=== PATIENT | female | born 1965 | race Caucasian/White ===

== ENCOUNTER 2016-12-12 04:41 | Inpatient (IN) ==
[2016-12-12] MEDS ORDERED: ZOFRAN IV ONE ×2 (04:54→07:49)
[2016-12-12] MEDS ORDERED: TORADOL IV ONE (04:54)
[2016-12-12] MEDS ORDERED: DILAUDID IV ONE (04:54)
[2016-12-12] MEDS ORDERED: NS 1,000 ML IV ONE (04:54)
--- NOTE | 2016-12-12 05:08 | PROVIDER DOCUMENTATION ---
HPI-Abdominal Pain/GI Problem - General Chief Complaint: Abdominal Pain Stated Complaint: STOMACH PAIN Time Seen by Provider: 12/12/16 04:49 Source: patient Allergies/Adverse Reactions: Patient Allergies Allergy/AdvReac Type Severity Reaction Status Date / Time No Known Allergies Allergy Verified 12/12/16 05:06 Home Medications: Home Medication List Medication Instructions Recorded Confirmed Last Taken Type Doxycycline Hyclate 100 mg PO BID 12/12/16 12/12/16 12/11/16 History - History of Present Illness-ABD Nature of Presenting Problems: pt states that starting around 11 PM she started having mid back pain that radiates around to the RUQ and periumbilical area.Initially it was mild but now is severe and constant and achy. She has vomited twice. She has a normal BM yesterday. No fever or chills. No cough or sore throat. No chest pain. She has not tried anything for the pain. No dysuria Review of Systems - Adult - REVIEW OF SYSTEMS - ADULT Constitutional: denies: chills, fever Eyes: denies: discharge Ears, Nose, Mouth & Throat: denies: ear pain, sinus problem, throat pain Cardiovascular: denies: chest pain Respiratory: denies: cough, shortness of breath Gastrointestinal: reports: see HPI, nausea, vomiting. denies: hematemesis, constipation, diarrhea, rectal bleeding Genitourinary: denies: dysuria, flank pain Musculoskeletal: reports: back pain. denies: muscle aches Integumentary: denies: rash Neurological: denies: headache/migraines Psychiatric: reports: no symptoms reported Endocrine: reports: no symptoms reported Hematologic/Lymphatic: reports: no symptoms reported Allergic/Immunologic: reports: no symptoms reported All Other Systems: Reviewed and Negative Past History - Adult - PAST MEDICAL HISTORY-ADULT Review of Records: reports: Old Records Reviewed, Nursing Assessment Review, Medications Reviewed, Social history reviewed & non-contributory. - PRIOR SURGERIES/PROCEDURES Surgical/Procedure History: reports: hysterectomy - FAMILY HISTORY Family History: reviewed, not pertinent - SOCIAL HISTORY Smoking: denies Living Situation: family Physical Exam-General - PHYSICAL EXAM-ADULT Initial Vital Signs Reviewed: Yes - CONSTITUTIONAL General Appearance: moderate distress (from pain) - EYES Eyes: pink conjunctivae. negative: scleral icterus - HEAD, EARS, NOSE, MOUTH & THROAT HENMT: normocephalic/atraumatic, pharynx normal - NECK Neck: non-tender, full range of motion, supple, normal inspection - RESPIRATORY Respiratory: chest non-tender, lungs clear, normal breath sounds, no pleuratic chest pain, no respiratory distress - CARDIOVASCULAR Cardiovascular: regular rate, rhythm, no murmur - GASTROINTESTINAL (ABDOMEN) Abdominal Exam: normal bowel sounds, soft, no organomegaly, no pulsatile mass, tenderness (mod. RUQ), Fontanez's sign. negative: non tender, distended, guarding , rigid, rebound, hernia, mass, hepatomegaly, spleenomegaly, McBurney's point tenderness, obturator sign, prominent aortic pulsations - MUSCULOSKELETAL Back Exam: normal inspection, no CVA tenderness, no vertebral tenderness - SKIN Integumentary: normal color, normal turgor, warm/dry - NEUROLOGIC Neurologic: grossly normal, no motor/sensory deficits - PSYCHIATRIC Psych/Mental Status: normal mood/affect, normal thought content, normal thought process, oriented x 3 Progress - PLAN OF CARE/RESULTS Progress/Plan/Lab Results: Vital Signs - 8 hr 12/12/16 04:47 Pulse Rate 85 Respiratory Rate 24 Blood Pressure 156/125 O2 Sat by Pulse Oximetry 100 Orders Category Date Time Status CBC WITH ELECTRONIC DIFF [HEME] Stat Lab 12/12/16 05:03 Ordered CMP [COMPREHENSIVE METABOLIC PANEL] [CHEM] Stat Lab 12/12/16 05:03 Ordered LIPASE [CHEM] Stat Lab 12/12/16 05:03 Ordered UA Reflex [URINALYSIS W/POSS RFLX CULT] [URINALYSIS] Lab 12/12/16 04:55 Uncollected Stat 0.9% Sodium Chloride Inj [Ns] 1,000 ml Med 12/12/16 04:54 Active IV 999 mls/hr Hydromorphone [Dilaudid] Med 12/12/16 04:54 Discontinued 1 mg IV NOW ONE Ketorolac [Toradol] Med 12/12/16 04:54 Discontinued 30 mg IV NOW ONE Ondansetron [Zofran] Med 12/12/16 04:54 Discontinued 4 mg IV NOW ONE Result Diagrams: 12/12/16 04:55 12/12/16 04:55 - REASSESSMENT Reassessment #1 Time Reassessed: 06:02 (pt is currently painfree) Status: improving - CHANGE OF SHIFT REPORT (ED Provider) Report Given and Care Transferred to:: Dr Wagoner Time of Transfer: 06:02 Items Pending: Ultrasound Results Departure - Departure Date of Disposition Decision: 12/12/16 Time of Disposition Decision: 10:26 DIAGNOSIS: Cholelithiases, Acute cholecystitis Disposition: ADMITTED INPATIENT 09 Certified Medical Emergency: Emergent Condition: Stable Referrals and Follow-Ups: None,PCP [Primary Care Provider] - - Critical Care Note This patient required my direct & personal management of CC.: No Attestation - Physician/ PRATIMA Attestation The physician spent face to face time with patient:: Yes Advanced Practice Provider documentation review:: The physician spent face to face time with this patient and agrees with all MLP documentation, treatment, and medical decision making by the MLP. See provider notes for further information.
[2016-12-12 05:28] LABS: BASO% 0.2 % (0.0-0.8); EOS# 0.02 X1000 (0.0-0.7); EOS% 0.2 % (0.0-10.0); HEMATOCRIT 44.9 % (37.0-47.0); IMM GRAN# 0.03 X1000 (0.0-0.04); IMM GRAN% 0.2 % (0.0-0.5); LYMPH# 1.36 X1000 (1.2-3.4); LYMPH% 10.5 % (20.5-51.1); MANUAL DIFF NEEDED? NO; MCHC 33.4 g/dL (33-37); MCV 89.8 FL (81-99); MONO# 0.43 X1000 (0.11-0.59); MONO% 3.3 % (1.7-9.3); MPV 11.2 FL (7.4-10.4); NEUT% 85.6 % (42.2-75.2); PLT 219 X1000 (130-400)
[2016-12-12 05:54] LABS: ALBUMIN 4.4 g/dL (3.5-5.0); CALCIUM 9.5 mg/dL (8.8-10.2); POTASSIUM 3.8 mmol/L (3.5-5.1); TOTAL BILIRUBIN 0.37 mg/dL (0.20-1.00); TOTAL PROTEIN 7.7 g/dL (6.3-8.3)
[2016-12-12 06:07] LABS: URINE CULTURE NEEDED? NO; URINE MICRO REVIEW NEEDED? NO; URINE SOURCE CLEAN CATCH
[2016-12-12 06:28] LABS: BILIRUBIN URINE NEGATIVE (NEGATIVE); BLOOD URINE NEGATIVE (NEGATIVE); COLOR YELLOW; GLUCOSE URINE TRACE mg/dL (NEGATIVE); LEUKOCYTES URINE NEGATIVE (NEGATIVE); NITRITE URINE NEGATIVE (NEGATIVE); PH URINE 5.5; PROTEIN URINE TRACE mg/dL (NEGATIVE); SP GRAVITY URINE 1.028; TURBIDITY URINE CLEAR (CLEAR); UROBILINOGEN URINE NORMAL (NORMAL)
[2016-12-12 06:30] LABS: UR EPITHELIAL CELLS <10 /HPF (<10); URINE BACTERIA NEGATIVE /HPF; URINE RBC <10 /HPF (<10); URINE WBC <10 /HPF (<10)
--- NOTE | 2016-12-12 08:11 | Diag Imaging Result Doc PS360 ---
EXAM: US GB < RUQ (LIMITED) INDICATION: ruq pain COMPARISON: None. FINDINGS: There are multiple shadowing stones in the lumen of the gallbladder. Gallbladder wall thickness is at the upper limit of normal. There is no pericholecystic fluid. The common bile duct is normal in diameter. Sonographic Fontanez's sign was reported to be negative. The liver is somewhat prominent measuring 19.2 cm in length and at least mildly echogenic suggesting mild hepatic steatosis. Portal venous flow is hepatopedal. The visualized pancreas is unremarkable. The aorta and IVC are grossly unremarkable. The right kidney is grossly unremarkable. IMPRESSION: 1.Cholelithiasis and a reported positive sonographic Fontanez's sign by the import customer service manager. Correlate clinically to exclude early or mild cholecystitis. 2.Somewhat prominent liver and suggestion of hepatic steatosis. Electronically signed by Roney Peng 12/12/2016 8:09 AM
[2016-12-12] MEDS: ZOSYN 3.375 GM/NS 3.375 GM/50 ML IVPB IV SCH ×3 (11:15→21:35)
--- NOTE | 2016-12-12 13:06 | HISTORY AND PHYSICAL ---
This is a 51-year-old who has been pretty healthy. The only significant history she has had a partial hysterectomy. She has recently been treated for what she thought was an insect bite on the left medial side. She is on doxycycline. A small cluster of papules that appeared to be resolving. But she presented after yesterday she noticed a pain radiating from the below the subcostal margin on both sides more prominent on the right coming from her back and sides all the way with a lot of pressure and a lot of pain. Some mild nausea with it and she really has not had symptoms of dyspepsia or postprandial discomfort. She presented to the emergency room. Ultrasound done today showed cholelithiasis with positive sonographic Fontanez's sign per cleaner carpet and upholstery, somewhat prominent liver suggestive of hepatic steatosis. She is negative for history of alcohol. PAST SURGICAL HISTORY: Partial hysterectomy in 1990. FAMILY HISTORY: Mother had history of myocardial infarction, breast and lung cancer, aortic aneurysm and apparently a brain aneurysm. Father with a myocardial infarction, hyperlipidemia, hypertension. He is still living and a sister with type 2 diabetes mellitus and brother with type 2 diabetes mellitus. Mother also had diabetes and hypertension. SOCIAL HISTORY: Negative for smoking, drinking, drugs. She has 3 children. Her boyfriend is at bedside. REVIEW OF SYSTEMS: General: She has not noticed any weight gain or loss. No fever or chills. HEENT: Unremarkable. Respiratory: No increased work of breathing or dyspnea. Cardiovascular: No chest pain or tachy palpitation. GI: Unremarkable. : Unremarkable. Musculoskeletal/Neurologic: No significant history. Endocrinologic/Immunologic: No significant history. PHYSICAL EXAMINATION: Pulse 59, respirations 19, blood pressure 129/71. HEENT: Pupils are equal, round. LUNGS: Clear in all lung cronin. CARDIOVASCULAR: Regular rhythm and rate without murmur or S3. ABDOMEN: She is tender at the right upper quadrant and epigastrium. No rebound tenderness. Pain has been relieved since she had her shot when she came into the emergency room. MUSCULOSKELETAL/NEUROLOGIC: No focal complaints. She has a small less than 2 mm or maybe a 1 mm papule on the left thigh that appears to be healing from pictures she had on her phone. Suspect this is an insect bite. She is getting doxycycline for it. LAB: White count 38786, hematocrit 44, platelet count 219,000. Sodium 139, potassium 3.8, chloride 99, bicarb 25, BUN 16, creatinine 1.0, blood sugar 170. Liver functions: AST 16, ALT 18, alkaline phos 84, albumin 4.4. Urine was clear. ASSESSMENT AND PLAN: 1. Cholelithiasis. I suspect biliary colic, possible cholecystitis. I will give her some IV fluids. Ask Surgery to evaluate. I will put her on some empiric antibiotics using Zosyn. 2. Steatosis which appears to be mild. No evidence of cirrhosis. Liver enzymes are not elevated. 3. Obesity. 4. She has given symptoms of gastroesophageal reflux but she was taking doxycycline as well so plan to admit and I suspect she will be evaluated by General Surgery with the expectation she may need cholecystectomy. cc: Fred Hays MD
[2016-12-12] MEDS: NS 1,000 ML IV SCH ×2 (15:59→21:32)
--- NOTE | 2016-12-12 18:40 | CONSULTATION ---
DATE OF CONSULTATION: 12/12/2016 CHIEF COMPLAINT: Pain radiating from her back around to her mid abdomen. HISTORY: This is a 51-year-old lady who was going to bed last night and had the sudden onset of pain in her back that radiated around to her front. She has never had an episode like that. Today it has subsided and she has no further pain. She denies fatty food intolerance. She denies any bloating, burping or belching. An ultrasound does show gallstones with possible or minimal wall thickening. This episode was associated with severe nausea. PAST MEDICAL HISTORY: Pertinent for hysterectomy. FAMILY HISTORY: Pertinent for myocardial infarction, hyperlipidemia and hypertension. SOCIAL HISTORY: Is negative for smoking or alcohol use. She has an attentive boyfriend. REVIEW OF SYSTEMS: As noted above. PHYSICAL EXAMINATION: Vital Signs: She is afebrile. Heart rate 60, respiratory rate 18, blood pressure 123/82. No cervical adenopathy. Lungs: Bilateral breath sounds. Heart: Regular rhythm. Abdomen: Soft. She is really nontender. No peripheral edema. She is awake and alert. DIAGNOSTICS/[place]: [place] [address], hemoglobin 15, hematocrit 44. LFTs are normal. Urine bilirubin is negative. Ultrasound showed cholelithiasis. ASSESSMENT: Possible biliary colic. It is now resolved. I discussed cholecystectomy with her. I do not think this is an emergency but we will certainly be willing to proceed if she wants to proceed. We discussed the benefits and risks of surgery as well as the chance of post cholecystectomy diarrhea. She does want to proceed. We will schedule her for tomorrow afternoon. cc: Israel Kessler MD
[2016-12-12] MEDS: PRILOSEC PO SCH (21:32)
[2016-12-13] MEDS: NS 1,000 ML IV SCH ×2 (03:45→15:41)
[2016-12-13] MEDS: ZOSYN 3.375 GM/NS 3.375 GM/50 ML IVPB IV SCH ×5 (03:45→22:55)
[2016-12-13 06:39] LABS: MANUAL DIFF NEEDED? NO
[2016-12-13 06:44] LABS: BASO% 0.4 % (0.0-0.8); EOS# 0.13 X1000 (0.0-0.7); EOS% 1.9 % (0.0-10.0); HEMATOCRIT 41.1 % (37.0-47.0); HEMOGLOBIN 13.4 g/dL (12.0-16.0); LYMPH# 2.12 X1000 (1.2-3.4); LYMPH% 31.3 % (20.5-51.1); MCH 30.7 PG (27-31); MCHC 32.6 g/dL (33-37); MCV 94.1 FL (81-99); MONO# 0.43 X1000 (0.11-0.59); MONO% 6.3 % (1.7-9.3); MPV 10.9 FL (7.4-10.4); NEUT% 60.1 % (42.2-75.2); PLT 184 X1000 (130-400); RBC 4.37 XMIL (4.2-5.4)
[2016-12-13 06:49] LABS: INR 0.99; PROTIME 10.4 Seconds (9.2-11.7)
[2016-12-13 07:00] LABS: AGAP 9; ALBUMIN 3.5 g/dL (3.5-5.0); ALKALINE PHOSPHATASE 71 U/L (32-104); BUN 8 mg/dL (8-22); CALCIUM 8.7 mg/dL (8.8-10.2); CHLORIDE 106 mmol/L (98-107); COSMO 282; GOT 14 U/L (10-30); GPT 15 U/L (10-36); MAGNESIUM 2.1 mg/dL (1.5-2.7); POTASSIUM 4.3 mmol/L (3.5-5.1); SODIUM 142 mmol/L (136-145); TCO2 27 mmol/L (25-35); TOTAL BILIRUBIN 0.58 mg/dL (0.20-1.00); TOTAL PROTEIN 6.6 g/dL (6.3-8.3)
[2016-12-13] MEDS: PRILOSEC PO SCH ×2 (10:52→21:06)
--- NOTE | 2016-12-13 14:52 | EKG Report ---
Test Performed on : 12/13/2016 2:29:23 PM Test Reason : DR ROMERO Blood Pressure : / mmHG Vent. Rate : 059 BPM Atrial Rate : 059 BPM P-R Int : 136 ms QRS Dur : 088 ms QT Int : 420 ms P-R-T Axes : 032 015 072 degrees QTc Int : 415 ms Sinus bradycardia. Cannot rule out Inferior infarct , age undetermined Abnormal ECG No previous ECGs available Confirmed by Allen IBANEZ, Schuyler Shafer ([id number]) on 12/13/2016 2:57:05 PM
[2016-12-13] MEDS ORDERED: LR 1,000 ML ONE (15:22)
[2016-12-13] MEDS ORDERED: SODIUM CHLORIDE 0.9% ONE (15:22)
[2016-12-13] MEDS ORDERED: MARCAINE 0.25% PF/EPI 1:200,000 ONE (15:22)
[2016-12-13] MEDS ORDERED: DIPRIVAN 1% ONE (15:29)
[2016-12-13] MEDS ORDERED: FENTANYL ONE (15:29)
[2016-12-13] MEDS ORDERED: XYLOCAINE-MPF 2% ONE (15:37)
[2016-12-13] MEDS ORDERED: NORCURON ONE (16:19)
[2016-12-13] MEDS ORDERED: STERILE WATER INJ. ONE (16:19)
[2016-12-13] MEDS ORDERED: ROBINUL ONE ×2 (16:21→16:22)
[2016-12-13] MEDS ORDERED: ATROPINE ONE (16:21)
[2016-12-13] MEDS ORDERED: NEOSTIGMINE ONE (16:24)
--- NOTE | 2016-12-13 16:38 | Diag Imaging Result Doc PS360 ---
OPERATIVE CHOLANGIOGRAM - 12/13/2016 INDICATION: GALLBLADDER DISEASE TECHNIQUE: The exam was performed by the patient's surgeon. Three images were submitted. COMPARISON: None FINDINGS: Contrast was infused into the cystic duct. This outlines a normal common bile duct with normal passage of contrast into the duodenum. IMPRESSION: Negative exam. Electronically signed by Titus Meza 12/13/2016 4:36 PM
[2016-12-13] MEDS ORDERED: ZOFRAN ONE (16:46)
[2016-12-13] MEDS: MORPHINE ONE ×3 (16:53→17:09)
--- NOTE | 2016-12-13 17:06 | PROGRESS NOTE ---
DATE: 12/13/2016 SUBJECTIVE: She is feeling a little better. She is looking to have surgery done, a cholecystectomy per Dr. Kessler. She wants to proceed with that. I think that is what happened today. OBJECTIVE: Vital signs: Afebrile, temperature 97.5 degrees, pulse 68, respirations 18, blood pressure 148/55. CVP less than 6 cm. Lungs: Clear in all lung cronin. Cardiovascular: Regular rhythm and rate without murmur or S3. Abdomen: Soft. Skin: Warm and dry. There is a little bit of epigastric tenderness, but no rebound. ASSESSMENT/PLAN: Cholelithiasis, possible cholecystitis, symptomatic. Abdominal ultrasound done on 12/12. There is positive Fontanez's sign. So I suspect she will get laparoscopic cholecystectomy today. cc: Fred Hays MD
[2016-12-13] MEDS ORDERED: MORPHINE ONE (17:22)
--- NOTE | 2016-12-13 21:44 | OPERATIVE NOTE ---
PROCEDURE DATE: 12/13/2016 PROCEDURE PERFORMED: Laparoscopic cholecystectomy with operative cholangiogram. SURGEON: Israel Kessler MD ASSISTANTS: Ludmila Mcclure and Ellen Whitmore. PREOPERATIVE DIAGNOSIS: Chronic calculous cholecystitis. POSTOPERATIVE DIAGNOSIS: Chronic calculous cholecystitis. FINDINGS: Cholangiogram revealed a normal size common duct with free flow in the duodenum. No intraluminal filling defects were seen. DESCRIPTION OF PROCEDURE: Satisfactory general endotracheal anesthesia was achieved. The abdomen was prepped and draped in sterile fashion. We anesthetized the skin at each trocar site. We began at the base of the umbilicus, incised the skin, used a 5 mm Optiview technique to enter the abdominal cavity. We insufflated through this trocar. Under direct visualization, we introduced a 5 trocar in the midclavicular line, 5 trocar near the anterior axillary line, and an 11 mm trocar in the mid epigastrium. We placed the patient in reverse Trendelenburg and turned her to the left. We grasped the fundus of the gallbladder and reflected it cephalad. We began dissection at the triangle of Calot. We identified the cystic duct and cystic artery. We clipped the cystic duct near the junction of the gallbladder. We incised the cystic duct and introduced a Skytop catheter. We shot a cholangiogram. The findings above were noted. We removed the cholangiogram catheter, clipped the cystic duct on the opposite side of cystic ductotomy x2, and transected it. The cystic artery was clipped proximally x2, distally x1, and divided. The cautery spatula was then used to dissect the gallbladder away from the liver. After complete separation of the gallbladder from the liver, we changed the video laparoscope to the mid epigastric trocar, introduced the EndoCatch, and placed the gallbladder within the bag. We actually left the 5 trocar in the umbilicus and introduced the bag through the epigastric trocar site. We placed the gallbladder within the bag and delivered it out of the abdominal cavity through the epigastric trocar site. We looked back to achieve satisfactory hemostasis. We aspirated what fluid had collected. We then used a Alvino-Izabella wound closure device to close the peritoneum at the epigastric trocar site. We then desufflated, removed our other trocars. We did place a 2-0 Polysorb [id number] stitch in the fascia of the epigastrium. We then closed the skin at each incision with 4-0 Polysorb subcuticular stitches. Sterile Op-Sites were applied. She tolerated it well and was sent to the recovery room in satisfactory condition. cc: MD Fred Miller MD
[2016-12-14] MEDS: NS 1,000 ML IV SCH ×2 (02:56→15:45)
[2016-12-14] MEDS: BUPRENEX IV PRN ×2 (03:20→15:44)
[2016-12-14] MEDS: ZOFRAN IV PRN ×2 (03:24→08:00)
[2016-12-14] MEDS: ZOSYN 3.375 GM/NS 3.375 GM/50 ML IVPB IV SCH ×4 (05:19→22:15)
[2016-12-14] MEDS: PRILOSEC PO SCH ×2 (08:49→20:34)
[2016-12-14] MEDS ORDERED: PHENERGAN IV PRN (10:40)
[2016-12-14] MEDS ORDERED: SODIUM CHLORIDE 0.9% INJ PRN (10:40)
--- NOTE | 2016-12-14 18:26 | PROGRESS NOTE ---
DATE: 12/14/2016 OBJECTIVE: Vital signs: Temperature 98.4 degrees, pulse 70, respirations 18, blood pressure 124/40. Lungs: Clear in all lung cronin. Cardiovascular: Regular rhythm and rate without murmur or S3. Abdomen: Soft. Skin: Warm and dry. : Urine output almost 4 L. LABORATORY: From yesterday reviewed. Chemistries, hematology. ASSESSMENT AND PLAN: 1. Possible biliary colic, not resolved. Discussed cholecystectomy and she agreed. Plan is to do a cholecystectomy today. 2. History of partial hysterectomy in 1990. 3. Family history of coronary artery disease. She does not have any. She presented with biliary colic, what appeared to be cholelithiasis. She also has underlying steatosis which aware. cc: Fred Hays MD
[2016-12-15] MEDS: ZOFRAN IV PRN ×4 (02:40→18:06)
[2016-12-15] MEDS: NS 1,000 ML IV SCH ×2 (02:40→13:59)
[2016-12-15] MEDS: ZOSYN 3.375 GM/NS 3.375 GM/50 ML IVPB IV SCH ×3 (05:18→16:40)
[2016-12-15] MEDS: PRILOSEC PO SCH ×2 (09:46→21:08)
--- NOTE | 2016-12-15 15:25 | PROGRESS NOTE ---
DATE: 12/15/2016 SUBJECTIVE: Ms. Douglas is feeling better. She had her gallbladder out yesterday. She is more awake and more alert. Tolerating liquids. OBJECTIVE: Vital Signs: Temperature 98.6 degrees, pulse 68, respirations 15, blood pressure 145/79. Her O2 saturations are 97%. Lungs: Clear in all lung cronin. Cardiovascular: Regular rhythm and rate without murmur or S3. Abdomen: Soft. Skin: Warm and dry. Urine Output: 2600 mL. LABORATORY REVIEW: Blood sugar 106, creatinine 0.8. Electrolytes unremarkable from 12/13/2016. ASSESSMENT AND PLAN: 1. Chronic calculus cholecystitis, status post cholecystectomy, laparoscopic, per Dr. tavares, doing well. We have backed down on her pain medicine. She does not want to go home tonight with the storm coming in and would like to try and go for the morning. 2. History of partial hysterectomy in 1990. 3. Family history of coronary artery disease, aware. 4. Review of her orders, continue the hydrocodone 5 mg every 6 hours p.r.n. She is on clear liquids. Let us see if we can advance those to soft gastrointestinal. Continue Zosyn for now. Hopefully, she can go home tomorrow. cc: rFed Hays MD
[2016-12-15] MEDS: NORCO-5 PO PRN (18:06)
[2016-12-16] MEDS: ZOSYN 3.375 GM/NS 3.375 GM/50 ML IVPB IV SCH ×3 (00:58→10:32)
[2016-12-16] MEDS: NS 1,000 ML IV SCH ×3 (03:10→20:47)
[2016-12-16] MEDS: PRILOSEC PO SCH ×2 (09:25→20:49)
[2016-12-16] MEDS: NORCO-5 PO PRN (09:30)
--- NOTE | 2016-12-16 12:41 | Diag Imaging Result Doc PS360 ---
CHEST-2 VIEWS - 12/16/2016 INDICATION: cough TECHNIQUE: COMPARISON: None FINDINGS: There is cardiomegaly. There is pulmonary vascular congestion. There is hazy central and bibasilar infiltrate, nonspecific but likely pulmonary edema. There are trace pleural effusions. IMPRESSION: See findings. Electronically signed by Titus Meza 12/16/2016 12:38 PM
[2016-12-16] MEDS: ZOFRAN IV PRN (14:15)
--- NOTE | 2016-12-16 15:13 | DISCHARGE SUMMARY ---
ADMISSION DATE: 12/12/2016 DISCHARGE DATE: 12/16/2016 HOSPITAL COURSE: This is a 51-year-old who has been pretty healthy. The only significant history is that she had a partial hysterectomy, recently being treated for what she thought was an insect bite on the left medial side of her leg with some doxycycline. She had a small cluster of papules there. This appears to be resolving. She presented on 12/12/2016. She noticed pain radiating from below the subcostal margin on both sides prominent on the right, coming from the back and sides all the way up, a lot of pressure, a lot of pain, some mild nausea and she really did not have any symptoms of dyspepsia or postprandial discomfort. In the emergency room an ultrasound showed cholelithiasis and positive Fontanez's sign. She was admitted for acute cholecystitis and cholelithiasis. She also had some evidence of steatosis and, of course, has obesity. She underwent surgery by Dr. Ed Kessler with laparoscopic cholecystectomy which she tolerated well. She was pretty lethargic the day after. I think we decreased her analgesia and she is doing better today. She still has not gotten out of bed much so I am going to stop her Zosyn. I am going to make sure she gets out of bed. We have the hydrocodone cut down to 5 mg q.6 hours which I think is appropriate. We will see if she can ambulate and hopefully she can go home this afternoon. She did want me to check a chest x-ray and I will do that. cc: Fred Hays MD
[2016-12-16] MEDS ORDERED: TYLENOL PO PRN (15:39)
--- NOTE | 2016-12-16 15:54 | PROGRESS NOTE ---
DATE: 12/16/2016 ADDENDUM: I had set her up to go home today but she feels awful and complains of persistent nausea, and does not want to go home. She remains afebrile. We had tried to get her up and get her to eat. She is not eating very much. Checked on her about 3:30, and she says she feels terrible. OBJECTIVE: Vital Signs: Temperature 97.3 degrees, pulse 70, respirations 16, blood pressure 150/77. CVP 6 cm. Lungs: Clear in all lung cronin. Cardiovascular: Regular rhythm and rate without murmur or S3. Genitourinary: Urine output 1000 mL. LAB: Reviewed from the . I am going to go ahead and check some more lab now and in the morning. ASSESSMENT AND PLAN: She is status post laparoscopic cholecystectomy for chronic calculus cholecystitis. We will give her some fluids, started her fluids back and we will do normal saline at 85 mL an hour. She has stuff for nausea. I will diminish her pain medication to 2.5 q.6 hydrocodone p.r.n. We will stop her Zosyn. cc: Fred Hays MD
[2016-12-16 16:36] LABS: AGAP 9; ALBUMIN 3.4 g/dL (3.5-5.0); ALKALINE PHOSPHATASE 72 U/L (32-104); BUN 7 mg/dL (8-22); CALCIUM 8.4 mg/dL (8.8-10.2); CHLORIDE 97 mmol/L (98-107); COSMO 269; GOT 35 U/L (10-30); GPT 55 U/L (10-36); POTASSIUM 3.6 mmol/L (3.5-5.1); SODIUM 135 mmol/L (136-145); TCO2 29 mmol/L (25-35); TOTAL BILIRUBIN 0.54 mg/dL (0.20-1.00); TOTAL PROTEIN 6.6 g/dL (6.3-8.3)
[2016-12-17] MEDS: NS 1,000 ML IV SCH ×2 (01:03→06:19)
[2016-12-17 07:41] LABS: AGAP 12; ALBUMIN 3.3 g/dL (3.5-5.0); ALKALINE PHOSPHATASE 71 U/L (32-104); BUN 6 mg/dL (8-22); CALCIUM 8.5 mg/dL (8.8-10.2); CHLORIDE 103 mmol/L (98-107); COSMO 280; GOT 33 U/L (10-30); GPT 53 U/L (10-36); POTASSIUM 3.6 mmol/L (3.5-5.1); SODIUM 142 mmol/L (136-145); TCO2 27 mmol/L (25-35); TOTAL PROTEIN 5.8 g/dL (6.3-8.3)
[2016-12-17 07:55] VITALS: BP 133/87
[2016-12-17] MEDS: PRILOSEC PO SCH (09:17)
[2016-12-17] MEDS: ZOFRAN IV PRN (09:17)
--- NOTE | 2016-12-17 09:54 | Diag Imaging Result Doc PS360 ---
CHEST-2 VIEWS - 12/17/2016 INDICATION: SOB, decreased sats TECHNIQUE: COMPARISON: 12/16/2016 FINDINGS: Stable cardiomegaly. Stable pulmonary vascular congestion. Stable hazy central and basilar infiltrates bilaterally. Stable trace pleural effusions. IMPRESSION: No significant change from prior. Electronically signed by Titus Meza 12/17/2016 9:52 AM
[2016-12-17 15:24] LABS: ALLEN TEST YES; BE 7.8 mmoll (-3.0-3.0); BLOOD TYPE ARTERIAL; DRAW SITE L RADIAL; METHB 0.9 % (0.0-1.5); O2(CT) 15.2 mL/dL (15.0-23.0); PCO2(98.6) 46 mmHg (35-45); PO2(98.6) 60 mmHg (60-100); SAMPLE BLOOD; SAO2 95.9 % (95.0-100.0); THB 11.6 g/dL (11.5-17.4); pH(98.6) 7.46 (7.35-7.45)
[2016-12-17 15:25] LABS: MODALITY ROOM AIR
--- NOTE | 2016-12-17 16:25 | DISCHARGE SUMMARY ---
ADMISSION DATE: 12/12/2016 DISCHARGE DATE: HOSPITAL COURSE: This is a 51-year-old pretty healthy white female, only significant history she has had partial hysterectomy. Recently treated for what she thought was an insect bite on left medial side of the thigh, received some doxycycline, had small little cluster of papules maybe 2 or 3 little small pustules less than 2 mm and they seem to be healing. She presented on 12/12/2016 noticed pain radiating from below the subcostal margin on both sides most prominent on the right coming in to the back in the middle of her scapula with a lot of pressure and lot of pain, mild nausea and she really has not had symptoms of dyspepsia and postprandial discomfort. Presented to the emergency room. Ultrasound was done showed cholelithiasis, positive sonographic Fontanez sign and was admitted for cholelithiasis, cholecystitis. PAST SURGICAL HISTORY: Only past surgical history is partial hysterectomy in 1990. LAB: On admission white count 12,990, hematocrit 44, platelet count 219,000. Chemistry is pretty unremarkable. Mild elevation of ALT 55 and AST is 35, bilirubin was 0.54, creatinine was 0.6. Dr. Kessler was consulted and he performed a laparoscopic cholecystectomy on 12/13/2016. Postop she remained pretty lethargic and nauseated, I backed down on her pain medicine and still had quite a bit of nausea was not eating well and so waited for her to improve and her p.o. intake and we tried to get up and ambulate a little bit and she felt better. We did see a couple runs on the monitor of atrial fibrillation which were short lived. All EKGs documented and we had several documented sinus rhythm. Blood pressure and hemodynamics look good. Traver she could go to go home on 12/17/2016. DISCHARGE MEDICATIONS: She can take Tylenol as needed, Prilosec 40 mg b.i.d. and as far as her home medications will hold off on the pain medicine. I felt like a good deal of her nausea when she was taking Blomkest and pain medicine and not getting any food in her stomach and rather lethargic and so improved when she was able to get up and breathe deeply and was eating a little better. She will follow up with Dr. Kessler. cc: Fred Hays MD
--- NOTE | 2016-12-17 17:33 | PROGRESS NOTE ---
DATE: 12/17/2016 SUBJECTIVE: A 51-year-old. She says she feels better this morning. She is eating a little bit and getting up a little bit, but not sure she wants to go home yet or not. OBJECTIVE: Afebrile. Temperature 97.8 degrees, pulse 104, respirations 20, and blood pressure 133/87.HEENT: Pupils are equal and round. CVP less than 6 cm. Lungs: Clear in all lung cronin. Cardiovascular: Regular rhythm and rate without murmurs. Abdomen: She does have a bloating sensation in her abdomen but no tenderness. Urine output is over 2 L. LABORATORY: White count 6780, hematocrit 41, and platelet count 184,000. Sodium 142, potassium 3.6, chloride 103, bicarb 27, BUN 6, creatinine 0.6, calcium 8.5. Note, she had some EKGs run. She had some sinus bradycardia. There are some rhythm strips that suggested atrial fibrillation at an accelerated rate. Looking at the orders, we can stop the normal saline. Good gas exchange and air exchange. Repeat another EKG. There is a possibility we can evaluate again at about 04:00 and see if she wants to go home. IMPRESSION AND PLAN: Previous medications shows she was only on hydrocodone when she came in. Blood pressures look good. If we are having significant atrial fib or symptomatic atrial fibrillation, we may need to pursue getting an echocardiogram and evaluating the left ventricular function. We will repeat another EKG at 04:00. If that looks good, I think she can go home. cc: Fred Hays MD
--- NOTE | 2016-12-18 05:28 | EKG Report ---
Test Performed on : 12/17/2016 3:04:47 PM Test Reason : Runs of A-Fib Blood Pressure : / mmHG Vent. Rate : 088 BPM Atrial Rate : 088 BPM P-R Int : 144 ms QRS Dur : 088 ms QT Int : 386 ms P-R-T Axes : 036 021 032 degrees QTc Int : 467 ms Sinus rhythm. with premature atrial complexes. Nonspecific T wave abnormality Prolonged QT Abnormal ECG When compared with ECG of 17-DEC-2016 08:58, (Unconfirmed) premature atrial complexes. are now present Confirmed by Allen IBANEZ, Schuyler Shafer ([id number]) on 12/19/2016 2:15:35 PM
--- NOTE | 2016-12-18 05:56 | EKG Report ---
Test Performed on : 12/17/2016 08:58:24 AM Test Reason : SOB, tachycardia Blood Pressure : / mmHG Vent. Rate : 091 BPM Atrial Rate : 091 BPM P-R Int : 154 ms QRS Dur : 088 ms QT Int : 372 ms P-R-T Axes : 039 024 021 degrees QTc Int : 457 ms Normal sinus rhythm. Cannot rule out Inferior infarct (cited on or before 13-DEC-2016) Abnormal ECG When compared with ECG of 13-DEC-2016 14:29, Vent. rate has increased BY 32 BPM Nonspecific T wave abnormality now evident in Inferior leads T wave inversion now evident in Anterior leads Confirmed by Allen IBANEZ, Schuyler Shafer ([id number]) on 12/19/2016 2:15:32 PM
== END 2016-12-17 16:45 | disposition home or self-care (01) ==
LOC: ED 04:41 → SUATTDRO 04:42 → 3N 04:42
PROVIDERS: ATTEND Emergency Medicine